=== PATIENT | male | born 1965 | race Caucasian/White ===

== ENCOUNTER 2020-02-09 20:11 | Emergency (ER) | payer OTHER ==
[~2020-02-09] VITALS: Ht 182.9 cm; Wt 70.3 kg
[2020-02-09 20:56] VITALS: BP 123/90
[2020-02-09] MEDS ORDERED: KETOROLAC 60 MG/2 ML VIAL IM ONE (21:45)
[2020-02-09] MEDS ORDERED: PENICILLIN G BENZATHINE L-A 1.2 MU/2 ML SYR IM ONE (21:45)
--- NOTE | 2020-02-09 22:10 | NUR ---
PT ASSESSED AND EVALUATED BY BETTY ROQUE.
[2020-02-09 22:42] VITALS: BP 123/90
--- NOTE | 2020-02-09 22:42 | NUR ---
Patient discharged with v/s stable. Written and verbal after care instructions given and explained. Patient alert, oriented and verbalized understanding of instructions. Ambulatory with steady gait. All questions addressed prior to discharge. ID band removed. Patient advised to follow up with PMD. Rx of MOTRIN, AND PREDNISONE given. Patient educated on indication of medication including possible reaction and side effects. Opportunity to ask questions provided and answered.
== END 2020-02-09 22:42 | disposition home or self-care (01) ==
LOC: MED 20:11
DX: J02.0 Streptococcal pharyngitis (principal)
CPT/HCPCS: 96372; 99284; J0561; J1885